=== PATIENT | male | born 1990 | race Caucasian/White ===

== ENCOUNTER 2024-02-18 10:17 | Emergency (ER) | payer BC, SELFPAY ==
[2024-02-18 10:19] VITALS: BP 154/89
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
[2024-02-18 11:37] VITALS: BP 148/77
== END 2024-02-18 11:38 | disposition home or self-care (01) ==
LOC: EMR 10:17
PROVIDERS: EMERGENCY PHYSICIAN Emergency Medicine
DX: S43.101A Unspecified dislocation of right acromioclavicular joint, initial encounter (principal); S40.011A Contusion of right shoulder, initial encounter; S00.11XA Contusion of right eyelid and periocular area, initial encounter; V86.59XA Driver of other special all-terrain or other off-road motor vehicle injured in nontraffic accident, initial encounter; R03.0 Elevated blood-pressure reading, without diagnosis of hypertension
CPT/HCPCS: 99283; 73030

== ENCOUNTER → 2024-03-04 15:35 | Outpatient (REF) | payer BC, SELFPAY | LOC: HWRAD 15:35 | PROVIDERS: ATTENDING PHYSICIAN Chiropractor | DX: M54.2 Cervicalgia (principal); M54.6 Pain in thoracic spine | CPT/HCPCS: 72050; 72072 ==

== ENCOUNTER 2024-09-18 05:41 | Emergency (ER) | payer BC, SELFPAY ==
[2024-09-18 05:54] VITALS: BP 137/95
[2024-09-18 06:40] LABS: % Basophils 0.3 % (0-2); % Eosinophils 1.2 % (0-6); % Immature Granulocytes 0.3 % (0-0.5); % Lymphocytes 18.2 % (20.5-51.1); % Monocytes 7.8 % (1.7-9.3); % Neutrophils 72.2 % (42.2-75.2); Absolute Eosinophils 0.1 10^3/uL (0-0.7); Absolute Lymphocytes 1.9 10^3/uL (1.2-3.4); Absolute Monocytes 0.8 10^3/uL (0.1-0.6); Absolute Neutrophils 7.4 10^3/uL (1.4-6.5); Hematocrit 46.5 % (39.0-52.0); Hemoglobin 15.5 g/dL (13.0-18.0); Mean Corp Hgb Conc. 33.3 g/dL (33.0-37.0); Mean Corpuscular Hgb 28.3 pg (27.0-31.0); Mean Platelet Volume 10.7 fL (7.4-10.4); Nucleated Red Blood Cells % 0 % (-); Platelet Count 202 10^3/uL (130-400); Red Blood Cell Count 5.47 10^6/uL (4.70-6.10); Red Cell Dist. Width 12.2 % (11.5-14.5); White Blood Cell Count 10.2 10^3/uL (4.8-10.8)
[2024-09-18 06:54] LABS: ALT (SGPT) 53 U/L (0-50); AST (SGOT) 30 U/L (17-59); Albumin 4.3 g/dl (3.5-5.0); Alkaline Phosphatase 80 U/L (38-126); Blood Urea Nitrogen 17 mg/dl (9-20); Calcium 9.6 mg/dl (8.4-10.2); Carbon Dioxide 27 mmol/L (22-30); Chloride 107 mmol/L (98-107); Glucose 102 mg/dl (70-99); Lipase 64 U/L (23-300); Potassium 4.1 mmol/L (3.5-5.1); Sodium 143 mmol/L (135-145); Total Bilirubin 0.9 mg/dl (0.2-1.3); Total Protein 7.1 g/dl (6.3-8.2); eGFR > 60.00
--- NOTE | 2024-09-18 07:38 | ED.GENMED ---
History of Present Illness
General
Chief Complaint: Abdominal Pain
Time Seen by Provider: 09/18/24 07:16
History of Present Illness
History of Present Illness:
34-year-old male presents to the emergency department for evaluation of intermittent left lower quadrant abdominal pain for the past 5 days. He notes the pain was initially very transient but is become more constant since last night. Also notes
constipation and difficulty voiding. No fevers, chills, sweats. No history abdominal surgeries. No history of similar issues in the past. Has never had a colonoscopy
Review of Systems
Review of Systems
Allergies reviewed?: Yes
All Other Systems: ROS reviewed and negative except as documented in HPI and ROS
Phy Exam
Physical Exam
Physical Exam:
GEN: Well appearing, NAD, WDWN
HEENT: Oral mucosa moist, no scleral icterus
Cardiac: Regular rate
Lung: No respiratory distress, no tachypnea
Abdomen: Soft, focal left lower quadrant tenderness, no rigidity
MSK: No gross deformity or injuries
Skin: Good color, no pallor or jaundice, no rashes
Neuro: AO x3, moves all extremities freely
Psych: Calm, cooperative
Course
Orders/Labs/Results
Orders:
Orders
09/18/24 05:58
IV Insert/Care/Rem.- Treatment PRN
09/18/24 06:34
Complete Blood Count/With Diff Urgent
Comprehensive Metabolic Panel Urgent
Lipase Urgent
09/18/24 07:38
CT Abd/Pel (IV only)-DH only Urgent
Comment:
Reason For Exam: LLQ pain
09/18/24 08:11
Urinalysis Reflex To Culture Urgent
Date Specimen was Collected: 09/18/24
Time Specimen was Collected: 05:58
Urine Microscopic Reflex Cult Urgent
Abnormal Lab Results
09/18/24 09/18/24
06:34 08:11
MPV 10.7 H fL
(7.4-10.4)
Absolute Neuts (auto) 7.4 H 10^3/uL
(1.4-6.5)
Absolute Monos (auto) 0.8 H 10^3/uL
(0.1-0.6)
Lymphocytes % 18.2 L %
(20.5-51.1)
Glucose 102 H mg/dl
(70-99)
ALT 53 H U/L
(0-50)
Ur Occult Blood Reflex 4+ A
(Negative)
Urine RBC 3-6 A /HPF
(0-2)
Urine Bacteria (Reflex) Few A
(Negative)
Urine Albumin (Reflex) 1+ A
(Neg - Trace)
09/18/24 06:34
09/18/24 06:34
Vital Signs
Initial and Last Documented VS:
Initial Vital Signs
Temp Pulse Resp BP Pulse Ox
98.2 F 85 20 137/95 99
09/18/24 05:54 09/18/24 05:54 09/18/24 05:54 09/18/24 05:54 09/18/24 05:54
Last Documented Vital Signs
Temp Pulse Resp BP Pulse Ox
98.6 F 76 20 145/84 98
09/18/24 07:44 09/18/24 08:12 09/18/24 08:12 09/18/24 08:12 09/18/24 08:45
MDM/Problems Addressed
MDM/Problems Addressed:
Due to the patient's persistent pain despite normal labs imaging was obtained to evaluate for diverticulitis, colitis, or kidney stone, small distal kidney stone was identified, patient has very well-controlled pain at this time, will manage with
expectant care, Flomax and NSAIDs prescribed
*Critical Care Note
Total Time (30-74mins, 75-104mins- exclusive of procedures): Not Applicable
ED Attending Note
-
Portions of this chart may have been created with voice recognition software.� Occasional wrong word or��sound alike� substitutions may have occurred due to the inherent limitations of voice recognition software.
Discharge Plan
Departure
Patient Disposition: Home (Routine Discharge)
Date of Disposition: 09/18/24
Time of Disposition: 08:45
Patient with high blood pressure during this ER visit?: No
Discharge Problem:
Ureterolithiasis
Instructions: Kidney Stones (DC)
Prescriptions:
New
diclofenac sodium 50 mg tablet,delayed release (DR/EC)
50 mg PO BID PRN (Reason: Pain) Qty: 20 0RF
tamsulosin [Flomax] 0.4 mg capsule
0.4 mg PO HS Qty: 10 0RF
Referrals:
Rubio Vang CRNP [Family Provider] -
Interventions
Interventions:
*Risk Screen - Suicide Last Done: 09/18/24 05:54
*General Assessment Last Done: 09/18/24 05:54
*Neglect/Abuse Screening Last Done: 09/18/24 05:54
*ED- Fall Risk Assessment Last Done: 09/18/24 05:54
*ED COVID-19 Vaccine History Last Done: 09/18/24 05:54
*Nursing Disposition Last Done: 09/18/24 08:50
ZD-Wlrexn-Fanvbyctdv Assessment Last Done: 09/18/24 07:44
Discharge Date and Time
Discharge Date/Time: 09/18/24 08:51
Print Language: MONGOLIAN
[2024-09-18 07:44] VITALS: BP 136/81; BMI 34.0
[2024-09-18 08:12] VITALS: BP 145/84
[2024-09-18 08:21] LABS: Urine Albumin 1+ (Neg - Trace); Urine Bilirubin Negative (Negative); Urine Character Clear (Clear); Urine Color Yellow; Urine Glucose Negative (Negative); Urine Ketone Negative (Negative); Urine Leukocyte Negative (Negative); Urine Nitrite Negative (Negative); Urine Occult Blood 4+ (Negative); Urine Urobilinogen Negative (Neg - 1+)
[2024-09-18 08:43] LABS: Urine Bacteria Few (Negative); Urine Squamous Cell 0-2 /LPF (Few); Urine White Cell 0-2 /HPF (0-5)
== END 2024-09-18 08:51 | disposition home or self-care (01) ==
LOC: EMR 05:41
PROVIDERS: Student in an Organized Health Care Education/Training Program; EMERGENCY PHYSICIAN Emergency Medicine
DX: N20.1 Calculus of ureter (principal)
CPT/HCPCS: 99284; 74177; 80053; 81003; 81015; 83690; 85025; Q9967